=== PATIENT | male | born 1970 | race Caucasian/White ===

== ENCOUNTER 2021-09-11 08:07 | Emergency (ER) | payer MEDICAID ==
[~2021-09-11] VITALS: Ht 170.2 cm; Wt 63.5 kg
[~2021-09-11 08:07] MED LIST: BENZ-315 PO; GEMF600T5 PO; PRAV20TA46 PO; RESPERIDAL; SPIMDI IH
--- NOTE | 2021-09-11 08:09 | NUR ---
BIBA TAKEN TO BED 7
[2021-09-11 08:12] VITALS: BP 118/86
--- NOTE | 2021-09-11 08:28 | NUR ---
PT LAC CLEANED WITH WARM WATER AND BETADINE. PLACED STERI STRIPS ON PT'S LAC PER ERMD ORDERS AND DRESSED WITH BANDAID.
[2021-09-11 08:31] VITALS: BP 118/68
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
--- NOTE | 2021-09-11 09:21 | NUR ---
DIRECTOR RAQUEL OF PT'S [employer]ARR[employer] ASKED ME TO CALL A CAB FOR MR. RODRIGUEZ; RAQUEL STS " PLEASE LET THE RETENTION MANAGER KNOW WE WILL PAY KHAN WHEN HE GETS TO OUR FACILITY. REPORT GIVEN TO RAQUEL.
--- NOTE | 2021-09-11 09:37 | NUR ---
Patient discharged with v/s stable. Written and verbal after care instructions given and explained. Patient verbalized understanding. Wheel Chair Assisted with steady gait. All questions addressed prior to discharge. Advised to follow up with PMD.
--- NOTE | 2021-09-11 09:38 | NUR ---
Chart checked and completed. The patient's care was reviewed and supervised by Fouzia Jason RN.
== END 2021-09-11 09:37 | disposition home or self-care (01) ==
LOC: MED 08:07
DX: S61.212A Laceration without foreign body of right middle finger without damage to nail, initial encounter (principal); F20.9 Schizophrenia, unspecified; Z79.899 Other long term (current) drug therapy; X58.XXXA Exposure to other specified factors, initial encounter; Y93.89 Activity, other specified; Y92.89 Other specified places as the place of occurrence of the external cause; Y99.8 Other external cause status
CPT/HCPCS: 90471; 90715; 99283